=== PATIENT | female | born 1935 | race Caucasian/White ===

== ENCOUNTER 2017-04-13 19:48 | Emergency (ER) | payer OTHER ==
[~2017-04-13] VITALS: Ht 167.6 cm; Wt 75.0 kg
[2017-04-13 19:55] VITALS: BP 128/99; PULSE 98; RESP 16; TEMP 98.7; O2SAT 97
--- NOTE | 2017-04-13 20:16 | PD ---
HPI Chief Complaint: generalized weakness Time Seen by Provider: 20:09 Travel History International Travel<30 days: No Contact w/Intl Traveler<30days: No History of Present Illness HPI 81-year-old that only female presents to the emergency department via EMS for evaluation of generalized weakness. Patient states that she she "doesn't feel well". She states that her symptoms started sometime today. Patient is a poor historian. EMS stated that the patient started up from the dinner table and didn't feel right. The patient states that she just remembers the family getting dinner ready. Patient denies any fevers or chills. No headache or blurry vision. She denies any chest pain or shortness breath. No abdominal pain. No nausea, vomiting, diarrhea. Patient denies any pain. Patient reports history of CVA, hypertension. She states she is on an anticoagulant, but does not remember which one. EMS states patient is in atrial fibrillation upon their arrival. Severity is moderate; no exacerbating or alleviating factors. [facility] Social History Alcohol Use: No Tobacco Use: No Substance Use: No Allergies-Medications (Allergen,Severity, Reaction): Coded Allergies: Penicillins (Verified Allergy, Unknown, 04/13/17) Sulfa (Sulfonamide Antibiotics) (Verified Allergy, Unknown, 04/13/17) Review of Systems Except as stated in HPI: all other systems reviewed are Neg Physical Exam Exam Limitations: Poor Historian Narrative GENERAL: Well-nourished, well-developed female patient, afebrile. Patient is alert. She is oriented to person, place, and time, but gives bizarre answers before giving correct answer and has to think about correct answer. SKIN: Focused skin assessment warm/dry. HEAD: Normocephalic. Atraumatic. EYES: No scleral icterus. No injection or drainage. PERRLA. EOM intact. NECK: Supple, trachea midline. No JVD or lymphadenopathy. CARDIOVASCULAR: Regular rate and rhythm without murmurs, gallops, or rubs. Bilateral radial and pedal pulses are 2+. RESPIRATORY: Breath sounds equal bilaterally. No accessory muscle use. Lungs sounds with slight extra wheezes noted throughout. GASTROINTESTINAL: Abdomen soft, non-tender, nondistended. MUSCULOSKELETAL: No cyanosis, or edema. Bilateral upper and lower extremities strength 5/5. All extremities are neurovascularly intact. BACK: Nontender without obvious deformity. No CVA tenderness. NEUROLOGICAL: Awake and alert. Cranial nerves II through XII intact. Motor and sensory grossly within normal limits. Five out of 5 muscle strength in all muscle groups. Normal speech. Finger to nose is normal bilaterally. Heel-to- greene is normal bilaterally. Data Data Last Documented VS Vital Signs Date Time Temp Pulse Resp B/P (MAP) Pulse Ox O2 Delivery O2 Flow Rate FiO2 04/13/17 21:16 105 16 155/114 (128) 95 22 206/102 (136) 04/13/17 20:45 97 3.00 04/13/17 19:55 98.7 Orders Orders Complete Blood Count With Diff (04/13/17 20:09) Comprehensive Metabolic Panel (04/13/17 20:) Magnesium (Mg) (04/13/17 20:09) Ckmb (Isoenzyme) Profile (04/13/17 20:09) Troponin I (04/13/17 20:) Act Partial Throm Time (Ptt) (04/13/17 20:09) Prothrombin Time / Inr (Pt) (04/13/17 20:09) Urinalysis - C+S If Indicated (04/13/17 20:09) Chest, Single Ap (04/13/17 20:09) Ct Brain W/O Iv Contrast(Rout) (04/13/17 20:09) Ecg Monitoring (04/13/17 20:09) Iv Access Insert/Monitor (04/13/17 20:09) Oximetry (04/13/17 20:09) Orthostatic Vital Signs (04/13/17 20:09) Sodium Chlorid 0.9% 500 Ml Inj (Ns 500 M (04/13/17 21:00) Albuterol-Ipratropium Neb (Duoneb Neb) (04/13/17 21:00) Cath For Specimen (04/13/17 21:00) Urine Culture (04/13/17 22:11) Nitrofurantoin Monohyd Macrocr (Macrobid (04/13/17 22:30) Acetaminophen (Tylenol) (04/13/17 22:30) Labs Laboratory Tests Test 04/13/17 20:15 04/13/17 21:30 White Blood Count 5.4 TH/MM3 Red Blood Count 4.93 MIL/MM3 Hemoglobin 12.9 GM/DL Hematocrit 40.2 % Mean Corpuscular Volume 81.4 FL Mean Corpuscular Hemoglobin 26.2 PG Mean Corpuscular Hemoglobin Concent 32.2 % Red Cell Distribution Width 17.2 % Platelet Count 225 TH/MM3 Mean Platelet Volume 8.6 FL Neutrophils (%) (Auto) 56.1 % Lymphocytes (%) (Auto) 30.6 % Monocytes (%) (Auto) 8.8 % Eosinophils (%) (Auto) 4.1 % Basophils (%) (Auto) 0.4 % Neutrophils # (Auto) 3.0 TH/MM3 Lymphocytes # (Auto) 1.6 TH/MM3 Monocytes # (Auto) 0.5 TH/MM3 Eosinophils # (Auto) 0.2 TH/MM3 Basophils # (Auto) 0.0 TH/MM3 CBC Comment DIFF FINAL Differential Comment Prothrombin Time 10.2 SEC Prothromb Time International Ratio 0.9 RATIO Activated Partial Thromboplast Time 25.3 SEC Blood Urea Nitrogen 11 MG/DL Creatinine 0.79 MG/DL Random Glucose 95 MG/DL Total Protein 7.8 GM/DL Albumin 3.8 GM/DL Calcium Level 8.9 MG/DL Magnesium Level 2.1 MG/DL Alkaline Phosphatase 84 U/L Aspartate Amino Transf (AST/SGOT) 29 U/L Alanine Aminotransferase (ALT/SGPT) 18 U/L Total Bilirubin 0.6 MG/DL Sodium Level 140 MEQ/L Potassium Level 4.5 MEQ/L Chloride Level 106 MEQ/L Carbon Dioxide Level 26.8 MEQ/L Anion Gap 7 MEQ/L Estimat Glomerular Filtration Rate 70 ML/MIN Total Creatine Kinase 93 U/L Troponin I LESS THAN 0.02 NG/ML Urine Color YELLOW Urine Turbidity CLEAR Urine pH 5.5 Urine Specific [place] 1.023 Urine Protein TRACE mg/dL Urine Glucose (UA) NEG mg/dL Urine Ketones NEG mg/dL Urine Occult Blood SMALL Urine Nitrite NEG Urine Bilirubin NEG Urine Urobilinogen LESS THAN 2.0 MG/DL Urine Leukocyte Esterase LARGE Urine RBC 15 /hpf Urine WBC 8 /hpf Urine Squamous Epithelial Cells <1 /hpf Urine Bacteria RARE /hpf Urine Mucus FEW /lpf Microscopic Urinalysis Comment CULT NOT INDICATED MDM Medical Decision Making Medical Screen Exam Complete: Yes Emergency Medical Condition: Yes Medical Record Reviewed: Yes Interpretation(s) chest x-ray - CONCLUSION: Underinflation with likely atelectasis at the left base. Otherwise, no acute cardiopulmonary abnormality is identified. CT brain - CONCLUSION: 1. Bilateral areas of low density in the occipital lobes bilaterally, left larger than right. Based on the appearance these are likely subacute or chronic areas of encephalomalacia. These may be related to prior SOW FARM TECHNICIAN distribution infarcts. 2. Otherwise, there is mild generalized atrophy. Differential Diagnosis A. fib versus pneumonia versus UTI versus electrolyte abnormality versus intracranial abnormality versus dehydration Narrative Course 81-year-old elderly female presents to the emergency department for not feeling well that started today. EKG shows atrial fibrillation, heart rate 107, no STEMI. CBC, CMP, CK, troponin, magnesium, PTT, PT/INR, UA are ordered and pending. Chest x-ray and CT of the brain are ordered and pending. Patient is given DuoNeb 1, and normal saline 500 mL bolus. CBC shows no acute abnormality. CMP shows no acute abnormality. CK is 93. Troponin is less than 0.02. Magnesium is 2.1. Coags are unremarkable. UA shows large leukocyte esterase, 8 WBC. Chest x-ray shows underinflation with likely atelectasis at the left base. Otherwise, no acute cardiopulmonary abnormality is identified. CT of the brain shows Bilateral areas of low density in the occipital lobes bilaterally, left larger than right. Based on the appearance these are likely subacute or chronic areas of encephalomalacia. These may be related to prior SOW FARM TECHNICIAN distribution infarcts; Otherwise, there is mild generalized atrophy. I spoke with the patient's daughter at bedside. She states that she had a CVA in February of this year. She states she was told of an irregular heart rhythm at that time which caused her stroke. Patient has not followed up with a survey party chief. Her daughter states that she had multiple episodes of syncope, 4-5 episodes. They laid her on the couch when she started to not feel right and then she appeared to have multiple syncopal episodes. Patient's daughter does state that she has been under a lot of stress as her last week. They are on vacation from [place], [place]. I discussed findings with the patient in her family. The patient would like to go home. She states she is feeling better. She is asking for Tylenol for right hand pain which is chronic for her. She will be started on Macrobid for UTI is given her first dose here. My attending physician, Dr. Pizarro, is aware of all findings and plan. He agrees with disposition. I instructed the family the patient to return immediately for any worsening symptoms. They agree. The patient was discharged in stable condition with instructions, including return instructions and follow up instructions. Diagnosis Primary Impression: Generalized weakness Additional Impression: Urinary tract infection Qualified Codes: N30.00 - Acute cystitis without hematuria Referrals: Primary Care Physician call for appointment Patient Instructions: General Instructions, Urinary Tract Infection in Women ( ED), Weakness (ED) Additional Instructions: Take antibiotic as directed until gone. Follow-up with your primary care physician. Return to the emergency department for any acute worsening of symptoms. Med/Other Pt SpecificInfo: Prescription(s) given Scripts Nitrofurantoin Monohydrate Macrocrystals (Macrobid) 100 Mg Capsule 100 MG PO BID for Infection for 7 Days, #14 CAP 0 Refills Prov: Naya Rodriguez 04/13/17 Disposition: 01 DISCHARGE HOME Condition: Stable Naya Rodriguez Apr 13, 2017 20:16
[2017-04-13 20:32] LABS: BASOPHIL % 0.4 % (0.0-2.0); EOSINOPHIL # 0.2 TH/MM3 (0-0.4); EOSINOPHIL % 4.1 % (0.0-4.0); HEMATOCRIT 40.2 % (35.0-46.0); HEMO FLAGS DIFF FINAL; LYMPH % 30.6 % (9.0-44.0); LYMPHOCYTE # 1.6 TH/MM3 (1.0-4.8); MEAN CELL VOLUME 81.4 FL (80.0-100.0); MEAN CORPUSCULAR HEMOGLOBIN 26.2 PG (27.0-34.0); MEAN CORPUSCULAR HGB CONC 32.2 % (32.0-36.0); MONO % 8.8 % (0.0-8.0); NEUT % 56.1 % (16.0-70.0); PLATELET COUNT 225 TH/MM3 (150-450); RED BLOOD COUNT 4.93 MIL/MM3 (4.00-5.30); RED CELL DISTRIBUTION WIDTH 17.2 % (11.6-17.2); WHITE BLOOD COUNT 5.4 TH/MM3 (4.0-11.0)
[2017-04-13 20:42] LABS: APTT (PATIENT) 25.3 SEC (24.3-30.1); INTERNATIONAL NORMALIZED RATIO 0.9 RATIO; PROTHROMBIN TIME - PATIENT 10.2 SEC (9.8-11.6)
[2017-04-13 20:43] VITALS: O2SAT 97
--- NOTE | 2017-04-13 20:54 | RADRPT ---
EXAM DATE/TIME: 04/13/2017 20:30 [facility] COMPARISON: No previous studies available for comparison. INDICATIONS : Shortness of breath. Generalized weakness. MEDICAL HISTORY : Stroke. SURGICAL HISTORY : Hysterectomy. ENCOUNTER: Initial ACUITY: 1 day PAIN SCORE: 0/10 LOCATION: Bilateral chest FINDINGS: Portable AP view of the chest demonstrates a normal-sized cardiac silhouette with calcification of th e aorta. Lungs are underinflated. A linear opacity is present in the left lower lobe. No pleural effu oliver or pneumothorax is identified. Bones and soft tissues demonstrate no acute finding. CONCLUSION: Underinflation with likely atelectasis at the left base. Otherwise, no acute cardiopulmonary abnormal ity is identified. Jered Mai MD on April 13, 2017 at 20:51 Board Certified Radiologist. This report was verified electronically.
[2017-04-13 20:55] LABS: ALT (GPT) 18 U/L (10-53)
[2017-04-13 20:56] LABS: ANION GAP 7 MEQ/L (5-15); AST (GOT) 29 U/L (15-37); BICARBONATE 26.8 MEQ/L (21.0-32.0); BLOOD UREA NITROGEN 11 MG/DL (7-18); CHLORIDE 106 MEQ/L (98-107); GLOMERULAR FILTRATION RATE 70 ML/MIN (>89); MAGNESIUM 2.1 MG/DL (1.5-2.5); POTASSIUM 4.5 MEQ/L (3.5-5.1); SODIUM (NA) 140 MEQ/L (136-145)
--- NOTE | 2017-04-13 20:58 | RADRPT ---
EXAM DATE/TIME: 04/13/2017 20:40 [facility] COMPARISON: No previous studies available for comparison. INDICATIONS : Dizziness. RADIATION DOSE: 33.06 CTDIvol (mGy) MEDICAL HISTORY : Stroke. SURGICAL HISTORY : Hysterectomy. ENCOUNTER: Initial ACUITY: 1 day PAIN SCALE: 0/10 LOCATION: cranial TECHNIQUE: Multiple contiguous axial images were obtained of the head. Using automated exposure control and adj ustment of the mA and/or kV according to patient size, radiation dose was kept as low as reasonably a chievable to obtain optimal diagnostic quality images. DICOM format image data is available electro nically for review and comparison. FINDINGS: CEREBRUM: There is generalized atrophy. Ventricles are normal in size. There are is a well-defined low-density in the occipital lobes bilaterally, left larger than right. Otherwise, no midline shift, mass lesion, hemorrhage or acute infarction. No extra-axial fluid collections are seen. POSTERIOR FOSSA: The cerebellum and brainstem demonstrate no acute finding. The 4th ventricle is midline. The cerebe llopontine angle is unremarkable. EXTRACRANIAL: Visualized sinuses are clear. SKULL: The calvaria is intact. No evidence of skull fracture. CONCLUSION: 1. Bilateral areas of low density in the occipital lobes bilaterally, left larger than right. Based o n the appearance these are likely subacute or chronic areas of encephalomalacia. These may be related to prior TOBACCO PREVENTION HEALTH EDUCATOR distribution infarcts. 2. Otherwise, there is mild generalized atrophy. Jered Mai MD on April 13, 2017 at 20:53 Board Certified Radiologist. This report was verified electronically.
[2017-04-13] MEDS ORDERED: SODIUM CHLORID 0.9% 500 ML INJ 500 ML IV ONE (21:00)
[2017-04-13] MEDS ORDERED: RESP: ALBUTEROL 2.5 MG/IPRATROPIUM 0.5 MG NEB (SCH) INH ONE (21:00)
[2017-04-13 21:16] VITALS: BP_SYST 155; BP_SYST 206; BP_DIAS 102; BP_DIAS 114; RESP 16; RESP 22
[2017-04-13 21:20] LABS: ALKALINE PHOSPHATASE 84 U/L (45-117); TOTAL BILIRUBIN ADULT 0.6 MG/DL (0.2-1.0)
[2017-04-13 21:26] LABS: CREATINE KINASE 93 U/L (26-192)
[2017-04-13 22:08] LABS: BACTERIA, URINE RARE /hpf; BLOOD, URINE SMALL (NEG); GLUCOSE,URINE NEG (NEG); KETONE, URINE NEG (NEG); MUCUS URINE FEW /lpf (OCC); NITRITE,URINE NEG (NEG); PH, URINE 5.5 (5.0-8.5); SQUAMOUS EPITHELIAL CELL URINE <1 /hpf (0-5); URINE COLOR YELLOW (YELLW/STRAW)
[2017-04-13 22:09] LABS: COMMENT (UR) CULT NOT INDICATED; CULTURE IF INDICATED CULT NOT INDICATED
[2017-04-13] MEDS ORDERED: MACR100C2 PO (22:23)
[2017-04-13] MEDS ORDERED: ACETAMINOPHEN 325 MG TAB PO ONE (22:30)
[2017-04-13] MEDS ORDERED: NITROFURANTOIN MONOHYD MACROCR 100 MG CAP PO ONE (22:30)
--- NOTE | 2017-04-13 22:31 | PD ---
Data Data Last Documented VS Vital Signs Date Time Temp Pulse Resp B/P (MAP) Pulse Ox O2 Delivery O2 Flow Rate FiO2 04/13/17 21:16 105 16 155/114 (128) 95 22 206/102 (136) 04/13/17 20:45 97 3.00 04/13/17 19:55 98.7 Orders Orders Complete Blood Count With Diff (04/13/17 20:09) Comprehensive Metabolic Panel (04/13/17 20:09) Magnesium (Mg) (04/13/17 20:09) Ckmb (Isoenzyme) Profile (04/13/17 20:09) Troponin I (04/13/17 20:09) Act Partial Throm Time (Ptt) (04/13/17:09) Prothrombin Time / Inr (Pt) (04/13/17:) Urinalysis - C+S If Indicated (04/13/17 20:09) Chest, Single Ap (04/13/17 20:09) Ct Brain W/O Iv Contrast(Rout) (04/13/17 20:09) Ecg Monitoring (04/13/17 20:09) Iv Access Insert/Monitor (04/13/17 20:09) Oximetry (04/13/17 20:09) Orthostatic Vital Signs (04/13/17 20:09) Sodium Chlorid 0.9% 500 Ml Inj (Ns 500 M (04/13/17 21:00) Albuterol-Ipratropium Neb (Duoneb Neb) (04/13/17 21:00) Cath For Specimen (04/13/17 21:00) Urine Culture (04/13/17 22:11) Nitrofurantoin Monohyd Macrocr (Macrobid (04/13/17 22:30) Acetaminophen (Tylenol) (04/13/17 22:30) Ed Discharge Order (04/13/17 22:24) Labs Laboratory Tests Test 04/13/17 20:15 04/13/17 21:30 White Blood Count 5.4 TH/MM3 Red Blood Count 4.93 MIL/MM3 Hemoglobin 12.9 GM/DL Hematocrit 40.2 % Mean Corpuscular Volume 81.4 FL Mean Corpuscular Hemoglobin 26.2 PG Mean Corpuscular Hemoglobin Concent 32.2 % Red Cell Distribution Width 17.2 % Platelet Count 225 TH/MM3 Mean Platelet Volume 8.6 FL Neutrophils (%) (Auto) 56.1 % Lymphocytes (%) (Auto) 30.6 % Monocytes (%) (Auto) 8.8 % Eosinophils (%) (Auto) 4.1 % Basophils (%) (Auto) 0.4 % Neutrophils # (Auto) 3.0 TH/MM3 Lymphocytes # (Auto) 1.6 TH/MM3 Monocytes # (Auto) 0.5 TH/MM3 Eosinophils # (Auto) 0.2 TH/MM3 Basophils # (Auto) 0.0 TH/MM3 CBC Comment DIFF FINAL Differential Comment Prothrombin Time 10.2 SEC Prothromb Time International Ratio 0.9 RATIO Activated Partial Thromboplast Time 25.3 SEC Blood Urea Nitrogen 11 MG/DL Creatinine 0.79 MG/DL Random Glucose 95 MG/DL Total Protein 7.8 GM/DL Albumin 3.8 GM/DL Calcium Level 8.9 MG/DL Magnesium Level 2.1 MG/DL Alkaline Phosphatase 84 U/L Aspartate Amino Transf (AST/SGOT) 29 U/L Alanine Aminotransferase (ALT/SGPT) 18 U/L Total Bilirubin 0.6 MG/DL Sodium Level 140 MEQ/L Potassium Level 4.5 MEQ/L Chloride Level 106 MEQ/L Carbon Dioxide Level 26.8 MEQ/L Anion Gap 7 MEQ/L Estimat Glomerular Filtration Rate 70 ML/MIN Total Creatine Kinase 93 U/L Troponin I LESS THAN 0.02 NG/ML Urine Color YELLOW Urine Turbidity CLEAR Urine pH 5.5 Urine Specific [place] 1.023 Urine Protein TRACE mg/dL Urine Glucose (UA) NEG mg/dL Urine Ketones NEG mg/dL Urine Occult Blood SMALL Urine Nitrite NEG Urine Bilirubin NEG Urine Urobilinogen LESS THAN 2.0 MG/DL Urine Leukocyte Esterase LARGE Urine RBC 15 /hpf Urine WBC 8 /hpf Urine Squamous Epithelial Cells <1 /hpf Urine Bacteria RARE /hpf Urine Mucus FEW /lpf Microscopic Urinalysis Comment CULT NOT INDICATED MDM Supervised Visit with JUAN C: Yes Narrative Course The history, exam, and medical decision-making in the associated mid-level provider note were completed with my assistance. I reviewed and agree with the findings presented. I attest that I had a [id number] encounter with the patient on the same day, and personally performed and documented my assessment and findings in the medical record. *My assessment and Findings: An 81-year-old woman presents emergent department with some altered mental status, episodes of confusion and near syncopal-like symptoms. Recent strokes, still balding on her CT scan. Here with family. Recent stressors with the of her about a week ago. Looks otherwise well. Discussed with family. She has a little bit of urinary tract infection. I recommend outpatient follow-up. Recent admission for stroke with workup for that. I don' t think the benefit to readmit to the hospital this time. Diagnosis Primary Impression: Generalized weakness Additional Impression: Urinary tract infection Qualified Codes: N30.00 - Acute cystitis without hematuria Referrals: Primary Care Physician call for appointment Patient Instructions: General Instructions, Urinary Tract Infection in Women ( ED), Weakness (ED) Additional Instruction: Take antibiotic as directed until gone. Follow-up with your primary care physician. Return to the emergency department for any acute worsening of symptoms. Scripts Nitrofurantoin Monohydrate Macrocrystals (Macrobid) 100 Mg Capsule 100 MG PO BID for Infection for 7 Days, #14 CAP 0 Refills Prov: Vidal Rodriguezdebby VIRAMONTES 04/13/17 Disposition: 01 DISCHARGE HOME Condition: Stable Devendra Pizarro MD Apr 13, 2017 22:31
[2017-04-13 22:50] VITALS: BP 151/90
--- NOTE | 2017-04-14 12:50 | EKG ---
Date Performed: 04/13/2017 Time Performed: 20:03:27 PTAGE: 81 years EKG: ATRIAL FIBRILLATION WITH RAPID VENTRICULAR RESPONSE RIGHT BUNDLE BRANCH BLOCK ABNORMAL ECG INTERPRETATION BASED ON A DEFAULT AGE OF 40 YEARS NO PREVIOUS TRACING DOCTOR: Enrique Pink Interpretating Date/Time 04/14/2017 12:49:22
== END 2017-04-13 23:10 | disposition home or self-care (01) ==
LOC: NEPE 19:48
DX: R53.1 Weakness (principal); N39.0 Urinary tract infection, site not specified; R41.82 Altered mental status, unspecified; R55 Syncope and collapse; I48.91 Unspecified atrial fibrillation; R94.31 Abnormal electrocardiogram [ECG] [EKG]; I45.10 Unspecified right bundle-branch block; I10 Essential (primary) hypertension; Z86.73 Personal history of transient ischemic attack (TIA), and cerebral infarction without residual deficits
CPT/HCPCS: 70450; 71010; 80053; 81001; 82550; 83735; 84484; 85025; 85610; 85730; 87086; 93005; 94664; 96360; 99285; J7040; P9612